=== PATIENT | male | born 1930 | race Caucasian/White ===

== ENCOUNTER 2020-05-07 19:13 | Emergency (ER) | payer OTHER, MEDICARE ==
[~2020-05-07] VITALS: Ht 165.1 cm; Wt 63.5 kg
[~2020-05-07 19:13] MED LIST: ACET500 PO; ALLO300 PO; AMLO5 PO; GLIP10 PO; Isosorbide Mono60 MG PO; LISI20 PO; METO50 PO; NITR.4SL SL; Norco 10-325 T1 EACH PO; PRED5 PO; SAXA2.5T PO; TRAM50 PO
== END 2020-05-07 23:30 | disposition home or self-care (01) ==
LOC: ER 19:13
DX: R56.9 Unspecified convulsions (principal); Z79.52 Long term (current) use of systemic steroids; Z79.899 Other long term (current) drug therapy
CPT/HCPCS: 96374; 99285-25; A9270; J2060